=== PATIENT | male | born 1960 | race Caucasian/White ===

== ENCOUNTER 2025-06-03 07:52 | Day surgery (SDC) | payer OTHER ==
[2025-06-03] VITALS (10 sets, daily range): BP systolic 87–131; BP diastolic 54–83
[~2025-06-03] VITALS: Ht 167.6 cm; Wt 96.2 kg
[~2025-06-03 07:52] MED LIST: ALBU90OI INH; ALDACTONE25 MG PO; AMLO10 PO; ARTHRITIS PAIN150 GM TOP; Flonase 0.05% N16 GM; HYDCHL25 PO; IBUP600 PO; OMEPRAZOLE20 M1 PO; RANI150; ZESTRIL40 M1 PO
[2025-06-03] MEDS ORDERED: CeFAZolin Sodium 2,000 MG in NS 100 ML IV SCH ×2 (08:25→18:00)
[2025-06-03] MEDS ORDERED: Chlorhexidine Mouth Care 15 ML UDC MT SCH (08:25)
[2025-06-03] MEDS ORDERED: Ropivacaine 0.5% HCl/Pf 123.125 MG,EPINEPHrine HCL 0.25 MG,Ketorolac Tromethamine 15 MG... INFIL SCH (08:25)
[2025-06-03] MEDS ORDERED: Tranexamic Acid 100 ML IV SCH (08:25)
[2025-06-03] MEDS ORDERED: METFORMIN HCL500 M3 PO (08:38)
[2025-06-03] MEDS ORDERED: MUPIROCIN2210 TOP (08:39)
[2025-06-03] MEDS ORDERED: ROSUVASTATIN CA20 MG PO (08:41)
[2025-06-03] MEDS ORDERED: CeFAZolin Sodium 2,000 MG VIAL ONE (08:53)
[2025-06-03] MEDS ORDERED: HYDROmorphone HCl/Pf 1MG SYR IV PRN ×3 (10:00→10:10)
[2025-06-03] MEDS ORDERED: Ondansetron HCl 2 MG / ML 2ML Vial IV PRN ×2 (10:00→10:40)
[2025-06-03] MEDS ORDERED: FentaNYL Citrate 50 MCG/ML 2 ML Injection ONE (10:01)
[2025-06-03] MEDS ORDERED: Midazolam HCl 1MG / ML 2ML Vial ONE (10:01)
[2025-06-03] MEDS ORDERED: ePHEDrine Sulfate 50 MG/ML 1ML Injection IV PRN (10:05)
[2025-06-03] MEDS ORDERED: FentaNYL Citrate 50 MCG/ML 2 ML Injection IV PRN ×2 (10:05)
[2025-06-03] MEDS ORDERED: Labetalol HCL 5 MG/ML 4ML Injection (Single Dose) IV PRN (10:05)
[2025-06-03] MEDS ORDERED: FLU VACC TS2025-26(6MOS UP)/PF 45 MCG/0.5 ML SYRINGE IM SCH (10:10)
[2025-06-03] MEDS ORDERED: Magnesium Hydroxide Conc 10 ML UDC PO PRN (10:15)
[2025-06-03] MEDS ORDERED: Dexamethasone Sod Phos 10 MG/ML 1ML VIAL ONE (10:32)
[2025-06-03] MEDS ORDERED: Ketorolac Tromethamine 30mg Vial ONE (10:32)
[2025-06-03] MEDS ORDERED: Ondansetron HCl 2 MG / ML 2ML Vial ONE (10:32)
[2025-06-03] MEDS ORDERED: Metoclopramide HCl 5MG / ML 2ML Vial IV PRN (10:35)
[2025-06-03] MEDS ORDERED: Phenylephrine HCl 100 MCG/ML-NS 10MLSYR (1MG/10ML) ONE (10:50)
[2025-06-03] MEDS ORDERED: Phenylephrine HCl 10mg/ml 1 ml Vial ONE (11:23)
[2025-06-03] MEDS ORDERED: Insulin Regular 100 UNIT/ML 10ML Vial SC SCH (11:30)
--- NOTE | 2025-06-03 14:10 | NUR ---
LATE ENTRY: PT ARRIVED TO SURGICAL ROOM 216 AT 1244 IN A BED. INTIALLY PLACED BACK ON 2LPM OXYGEN VIA NC IN PACU. PT IS ABLE TO WIGGLE TOES, AND BEND KNEE. SURGICAL SITE IS C/D/I WITH AN AQUACELL, WITH LATASHA WRAP AND POLAR PACK APPLIED TO LEFT KNEE. PT IS DENYING PAIN. ORIENTED TO ROOM, EDUCATED TO CALL FOR ANY NEEDS. CALL LIGHT WITHIN REACH.
[2025-06-03] MEDS ORDERED: ASPI81CH PO (17:42)
--- NOTE | 2025-06-03 17:47 | NUR ---
ASSUMED CARE OF PT. PT PRESENTLY SITTING UP IN CHAIR. PT WOULD LIKE TO DISCHARGE HOME. DC PAPERWORK IN PROGRESS. CHEM BG BEING CHECKED. WILL MEDICATE IF NEEDED. PT DENIES COMPLAINTS OR PAIN.
--- NOTE | 2025-06-03 18:32 | NUR ---
DC INSTRUCT REVIEWED. IV DC'D INTACT. PT WILL DRESS AND DISCHARGE HOME WITH FAMILY.
[2025-06-04] MEDS ORDERED: MetFORMIN HCl 500 mg PO SCH (09:00)
[2025-06-04] MEDS ORDERED: Fluticasone 0.05% Nasal Spray SCH (09:00)
== END 2025-06-04 02:58 | disposition home or self-care (01) ==
LOC: ORSCMMR 07:52 → ORD 10:00 → ORSCMMR 10:00 → SURS 12:15 → ORSCMMR 06-04 02:58 → SURS 06-04 02:58
PROVIDERS: Orthopaedic Surgery
PROC: 0SRD0JZ Replacement of Left Knee Joint with Synthetic Substitute, Open Approach (ICD-10-PCS; principal; 2025-06-03 10:00)
DX: M17.12 Unilateral primary osteoarthritis, left knee (principal); I10 Essential (primary) hypertension; E11.9 Type 2 diabetes mellitus without complications; K21.9 Gastro-esophageal reflux disease without esophagitis; Z87.891 Personal history of nicotine dependence; E66.9 Obesity, unspecified; Z68.34 Body mass index [BMI] 34.0-34.9, adult; Z79.84 Long term (current) use of oral hypoglycemic drugs; Z79.899 Other long term (current) drug therapy; E78.5 Hyperlipidemia, unspecified
CPT/HCPCS: 73560-LT; 82947; A9270; C1776; J0166; J0690; J0735; J1100; J1815; J1885; J2250; J2371; J2405; J2704; J2795; J3010; J7120